=== PATIENT | male | born 1965 | race Caucasian/White ===

== ENCOUNTER → 2017-09-29 15:05 | Outpatient (CLI) | payer OTHER, SELFPAY ==
--- NOTE | 2017-09-29 15:11 | CT_ITS ---
CT sinus wo con CLINICAL INDICATION: Posterior column but] A palpable [ ITS.REASON: MAXILLARY SINUSITIS, RHINITIS ORDERING PHYSICIAN: Memo Romero MD PATIENT AGE: 51 years COMPARISON: None TECHNIQUE:Axial, sagittal, and coronal images are generated and reviewed without contrast COMPARISON: None FINDINGS: No sinus air-fluid level is evident. There is minimal mucosal thickening within the ethmoid sinuses. There is a 14 x 8 mm retention cyst in the floor the right maxillary sinus. There is moderate rightward nasal septal deviation with a small septal spur projecting toward the right. Ostiomeatal units are patent. The left maxillary, sphenoid, and frontal sinuses are unremarkable. Unremarkable appearing orbits. The TMJs have an unremarkable appearance as do the mastoid sinuses. The right acoustic foramen is slightly larger than the left side. This is of questionable clinical evident. Scattered small lymph nodes are present in the neck. There is a 2.8 x 2.1 cm subcutaneous collection in the left upper back and could be due to sebaceous cyst. IMPRESSION: 1. Minimal mucosal thickening of ethmoid sinuses with a 14 mm retention cyst in the right maxillary sinus. 2. No sinus air-fluid levels. 3. Moderate rightward nasal septal deviation. 4. Some asymmetry in the acoustic foramen, the right being slightly larger than the left. This is of questionable clinical significance and may be better evaluated with MRI without and with contrast if clinically warranted
== END ==
PROVIDERS: Family Provider Internal Medicine; PCP Internal Medicine; Visit Provider Otolaryngology
DX: J32.0 Chronic maxillary sinusitis (principal); J31.0 Chronic rhinitis
CPT/HCPCS: 70486

== ENCOUNTER → 2017-10-08 10:43 | Outpatient (CLI) | payer OTHER, SELFPAY ==
[2017-10-08 11:39] LABS: Hemoglobin 13.1 g/dL (14.1-18.0); Red Blood Count 4.16 M/mm3 (4.60-6.20)
[2017-10-08 11:40] LABS: Basophils % 0.8 % (0.1-2.0); Eosinophils # 0.1 K/mm3 (0.0-0.4); Eosinophils % 2.1 % (0.1-12.0); Hematocrit 39.7 % (42.0-52.0); Lymphocytes # 1.7 K/mm3 (0.7-4.5); Lymphocytes % 37.2 K/mm3 (10-50); Mean Corpuscular HGB Conc 33.1 g/dL (31.8-35.4); Mean Corpuscular Hemoglobin 31.6 pg (27.0-31.2); Mean Corpuscular Volume 95.3 fl (80-94); Mean Platelet Volume 8.7 fl (7.4-10.4); Monocytes # 0.3 K/mm3 (0.1-1.0); Monocytes % 5.3 % (1.7-9.3); Neutrophils # 2.7 K/mm3 (1.8-7.8); Neutrophils % 54.5 % (37.0-80.0); Platelet Count 155 K/mm3 (142-424); Red Cell Distribution Width 12.3 % (11.5-17.5)
[2017-10-08 12:30] LABS: Anion Gap 15.3 mEq/L (5-15); Blood Urea Nitrogen 16 mg/dL (7-18); Carbon Dioxide 25 mmol/L (21.0-32.0); Chloride 103 mmol/L (98-107); Creatinine,Serum 0.89 mg/dL (0.70-1.30); Estimated Glomerular Filt Rate 90 ml/min (>60); GFR (African American) 109 ML/MIN (>60); Glucose 158 mg/dL (74-106); Potassium 4.3 mmoL/L (3.5-5.1); Sodium 139 mmol/L (136-145)
== END ==
PROVIDERS: PCP Internal Medicine; Visit Provider Otolaryngology
DX: J32.0 Chronic maxillary sinusitis (principal); J31.0 Chronic rhinitis; Z01.818 Encounter for other preprocedural examination
CPT/HCPCS: 36415; 80048; 85025; 93005

== ENCOUNTER 2017-10-28 07:42 | Day surgery (SDC) | payer OTHER, SELFPAY ==
[2017-10-27 12:18] VITALS: BMI 33.6
[2017-10-28] VITALS (10 sets, daily range): BP systolic 121–152; BP diastolic 73–98; PULSE 68–86; RESP 12–20; TEMP 36.2–36.9; O2SAT 90–97
--- NOTE | 2017-10-28 11:19 | P.PN_ITS ---
[facility] Anesthesia Record Part I Intake, IV Amount: 1,200 Estimated blood loss (mL): 50 Urine output (mL): 0 Blood Pressure: 141/81 SaO2: 95 Pulse Rate: 80 Respiratory Rate: 12 Temperature: 97.3 F Patient is:: Awake, Stable Stable to PACU at:: 11:15
--- NOTE | 2017-10-28 11:20 | P.PN_ITS ---
[facility] Anesthesia Record Part II Discharge Time: 11:45 Destination: [facility] PACU nurse assessment reviewed?: Yes Patient Condition:: Good Anesthesia Complications:: None
--- NOTE | 2017-10-28 11:24 | P.PN_ITS ---
[facility] Anesthesia Checklist - Structural Data Admitted From: Home Planned Operative Procedure/s: laryngoscopy w fess Consent for Planned Operative Procedure(s) Verified: Yes Verified Documents: Surgical Consent - NPO Status Verified Time NPO: 23:00 - Airway Assessment C-Spine Mobility Assessed: Yes TMJ Mobility Assessed: Yes Dentition: Poor Dentition - Neurological Assessment Level of Consciousness: Awake, Alert - Anesthesia Plan Anesthesia Risk discussed: Yes Anesthesia Plan: Verified ASA Class: II Anesthesia Type: General [facility] Anesthesia HX I have reviewed the patient's past medical history: Yes Medical History: Reports:: Diabetes Mellitus Type 2 (MEDS ONLY), Hyperlipidemia , Hypertension Denies:: Cancer, Diabetes Mellitus Type 1, MRSA, Seizures Other Medical History: Denies: Blood Transfusion Reaction Other Surgeries: Yes: Hernia Repair, Other Amputation: No Fractures: No *Family Hx:: Diabetes
[2017-10-28 15:14] LABS: POC Glucose,Bedside 180 mg/dL (70-110)
--- NOTE | 2017-11-01 15:03 | HMH.OPNOTE ---
Date of procedure: 10/28/17 Pre-op Diagnosis:: 1. Deviated nasal septum with 90% nasal airflow blockage 2. Polypoid right inferior turbinate Post-op Diagnosis:: same Procedure performed:: 1. Nasal septoplasty 2. Revomal of multiple right inferior turbinate polyps Surgeon:: Memo Romero MD PROFESSOR OF MUSICOLOGY:: Johnny Gomez Anesthesia: GETA Estimated blood loss (mL): 5 Operative findings:: same Operative note:: The patient under general anesthetic the face was prepped and draped the nose was decongested with topical cocaine and 5 cc of 2% lidocaine with epi were injected into the nasal septum.. A left hemitransfixion incision was made, and the mucoperichondrium and mucoperiosteum was elevated from both sides of the nasal septum. The Quadrangular cartilage was trimmed posteriorly and a large vomerine spur was removed. There was also small deformity of the anterior portion of the quadrangular cartilage and it was removed. The Perpendicular plate of the ethmoid was straightened and when that was done the septum could be realigned in the midline, it was held there with transfixion and hemitransfixion chromic sutures. Surgicel snow was placed between the flaps. There were multiple polyps involving the posterior end of the right inferior turbinate, using the Wildes forceps all of those polyps were removed and submitted. Bleeding was stopped with suction cautery. Cortisporin ointment was placed in the nasal vestibules. A Drip Pad dressing was applied and the patient was sent to recovery in good general condition. Condition: stable Disposition: PACU Complications:: none
--- NOTE | 2017-11-01 15:09 | P.OP_ITS ---
Date of procedure: 10/28/17 Pre-op Diagnosis:: 1. Deviated nasal septum with 90% nasal airflow blockage 2. Polypoid right inferior turbinate Post-op Diagnosis:: same Procedure performed:: 1. Nasal septoplasty 2. Revomal of multiple right inferior turbinate polyps Surgeon:: Memo Romero MD [employer]:: Johnny Gomez Anesthesia: GETA Estimated blood loss (mL): 5 Operative findings:: same Operative note:: The patient under general anesthetic the face was prepped and draped the nose was decongested with topical cocaine and 5 cc of 2% lidocaine with epi were injected into the nasal septum.. A left hemitransfixion incision was made, and the mucoperichondrium and mucoperiosteum was elevated from both sides of the nasal septum. The Quadrangular cartilage was trimmed posteriorly and a large vomerine spur was removed. There was also small deformity of the anterior portion of the quadrangular cartilage and it was removed. The Perpendicular plate of the ethmoid was straightened and when that was done the septum could be realigned in the midline, it was held there with transfixion and hemitransfixion chromic sutures. Surgicel snow was placed between the flaps. There were multiple polyps involving the posterior end of the right inferior turbinate, using the Wildes forceps all of those polyps were removed and submitted. Bleeding was stopped with suction cautery. Cortisporin ointment was placed in the nasal vestibules. A Drip Pad dressing was applied and the patient was sent to recovery in good general condition. Condition: stable Disposition: PACU Complications:: none
== END 2017-10-28 12:24 | disposition home or self-care (01) ==
LOC: OR 07:43
PROVIDERS: Family Provider Internal Medicine; PCP Internal Medicine; Visit Provider Otolaryngology
PROC: (CPT 30520; principal; 2017-10-28 09:30)
PROC: 0CJS8ZZ Inspection of Larynx, Via Natural or Artificial Opening Endoscopic (ICD-10-PCS; CPT 30115; 2017-10-28 09:30)
DX: J34.2 Deviated nasal septum (principal); J33.8 Other polyp of sinus
CPT/HCPCS: 30115; 30520; 82962; 96374; 96375; J2405; J2710

== ENCOUNTER → 2019-10-27 16:55 | Outpatient (CLI) | payer OTHER, SELFPAY ==
[2019-10-27 18:17] LABS: Alanine Aminotransferase 121 U/L (12-78); Albumin/Globulin Ratio 1.4 (1.1-1.8); Alkaline Phosphatase 78 U/L (38-126); Aspartate Amino Transferase 85 U/L (17-59); Bilirubin,Total 0.6 mg/dl (0.2-1.3); Blood Urea Nitrogen 16 mg/dl (9-20); Calcium 10.1 mg/dl (8.4-10.2); Carbon Dioxide 22 mmol/L (22.0-30.0); Chloride 101 mmol/L (98-107); Chol/HDL Ratio 3.6 (1-3.5); Cholesterol 186 mg/dl (140-200); Estimated Glomerular Filt Rate 101 ml/min (>60); GFR (African American) 122 ML/MIN (>60); Globulin 3.7 g/dL (1.3-3.2); Glucose 143 mg/dl (74-100); HDL Cholesterol 52 mg/dl (40-60); Sodium 137 mmol/L (136-145); Total Protein,Serum 8.7 g/dl (6.3-8.2); Triglycerides 382 mg/dl (30-150); VLDL Cholesterol 76 mg/dL (0-40)
[2019-10-27 18:28] LABS: Direct LDL Cholesterol 93.01 mg/dL (100-129)
[2019-10-27 19:05] LABS: Hemoglobin A1C 9.5 % (4.0-6.0)
== END ==
PROVIDERS: Visit Provider Internal Medicine
DX: E78.5 Hyperlipidemia, unspecified (principal); E11.9 Type 2 diabetes mellitus without complications; I10 Essential (primary) hypertension; Z79.84 Long term (current) use of oral hypoglycemic drugs
CPT/HCPCS: 80053; 80061; 83036

== ENCOUNTER → 2021-02-10 17:19 | Outpatient (CLI) | payer OTHER, SELFPAY ==
[2021-02-10 17:45] LABS: Hemoglobin A1C 7.7 % (4.0-6.0)
[2021-02-10 18:03] LABS: Chloride 102 mmol/L (98-107); Potassium 4.8 mmoL/L (3.5-5.1); Sodium 137 mmol/L (136-145)
[2021-02-10 18:05] LABS: Blood Urea Nitrogen 19 mg/dl (9-20); Estimated Glomerular Filt Rate 78 ml/min (>60); GFR (African American) 94 ML/MIN (>60)
[2021-02-10 18:06] LABS: Alanine Aminotransferase 81 U/L (12-78); Albumin Level 5.2 g/dl (3.5-5.0); Albumin/Globulin Ratio 1.3 (1.1-1.8); Alkaline Phosphatase 77 U/L (38-126); Anion Gap 16.8 mEq/L (5-15); Aspartate Amino Transferase 55 U/L (17-59); Bilirubin,Total 0.8 mg/dl (0.2-1.3); Calcium 9.8 mg/dl (8.4-10.2); Carbon Dioxide 23 mmol/L (22.0-30.0); Cholesterol 212 mg/dl (140-200); Globulin 3.9 g/dL (1.3-3.2); Glucose 112 mg/dl (74-100); HDL Cholesterol 53 mg/dl (40-60); Total Protein,Serum 9.1 g/dl (6.3-8.2)
[2021-02-10 18:08] LABS: Triglycerides 511 mg/dl (30-150)
[2021-02-10 18:17] LABS: Direct LDL Cholesterol 79.33 mg/dL (100-129)
== END ==
LOC: LAB.DROPOF 17:19
PROVIDERS: Visit Provider Internal Medicine
DX: E11.9 Type 2 diabetes mellitus without complications (principal); I10 Essential (primary) hypertension; E78.5 Hyperlipidemia, unspecified; Z79.84 Long term (current) use of oral hypoglycemic drugs
CPT/HCPCS: 80053; 80061; 83036

== ENCOUNTER 2021-06-03 14:49 | Emergency (ER) | payer OTHER, SELFPAY ==
[2021-06-03 15:06] VITALS: BP 123/73; PULSE 98; RESP 16; TEMP 37.8; O2SAT 99; BMI 32.3
--- NOTE | 2021-06-03 15:27 | HMH.EDUTC ---
[facility] [place] Clinical Impression: Viral syndrome, Exposure to COVID-19 virus, Bronchitis Disposition: Home, Self-Care Condition on Discharge: Good Instructions: Acute Bronchitis, DI for Acute Bronchitis, DI for COVID-19 (Suspected or Confirmed ), Preventing the Spread of Coronavirus Discharge Instructions Additional Instructions: Drink plenty of fluids. Take tylenol or ibuprofen for pain or fever. Take the medications as directed. Follow up with your regular doctor. GO TO THE ER FOR ANY WORSENING SYMPTOMS Quarantine until you know the results of your covid-19 test. If it is positive, the health department should call you and give you further instructions about your length of Quarantine and other things. Notify your school or workplace of your results and follow their instructions regarding return to work/school. Prescriptions: Benzonatate [Tessalon Perle 100mg Cap] 100 mg PO TIDP PRN #30 cap PRN Reason: Cough Transmission Status: Received by [facility] Azithromycin [Z-Ta 250mg Tab*] 250 mg PO UD DOSE PK #6 tab Transmission Status: [facility] Referrals: Júnior Robert [Primary Care Provider] - Forms: Work/School Release Time of Disposition: 15:45 Medical Decision Making - Medical Records Medical records reviewed: No: I reviewed the patient's medical records. - Leonard Inquiry Pt receiving controlled substance: No Vital Signs: 06/03/21 15:06 06/03/21 16:18 Temperature 100.0 F H 100.0 F H Temperature Source Oral Oral Pulse Rate 98 H Pulse Rate [Apical] 98 H Respiratory Rate 16 16 Blood Pressure 123/73 Blood Pressure [Right Arm] 123/73 Blood Pressure Mean [Right Arm] 89 Blood Pressure Source Automatic Cuff Blood Pressure Source [Right Arm] Automatic Cuff Blood Pressure Position Sitting Blood Pressure Position [Right Arm] Sitting 02 Sat by Pulse Oximetry 99 Oxygen Delivery Method Room Air Room Air [facility] [place] HPI - General Stated complaint: covid symptoms, chest congestion Time Seen by Provider: 06/03/21 15:27 Mode of Arrival: Ambulatory Source of Information: Patient Limitations: No Limitations Description of Symptoms (Recalled from Triage Doc. by RN): chest congestion, fever, sore throat HEENT Symptoms (Recalled from RN notes): No Resp Symptoms (Recalled from RN notes): Yes Skin Symptoms (Recalled from RN notes): No MS Symptoms (Recalled from RN notes): No Functional Status (Recalled from RN notes): na - History of Present Illness Provider Complaint: He states that he has been having a cough and feeling congested in his chest for the past 2 days. He denies any fever but he has a low grade fever at check in today. He has not been vaccinated against covid-19. - Related Data Home Medications Medication Instructions Recorded Confirmed metformin 500 mg tablet 500 mg PO BID 09/24/17 09/25/18 Lovastatin 40 mg PO DAILY 09/25/18 09/25/18 lisinopriL [Lisinopril 2.5mg Tab] 2.5 mg PO DAILY 09/25/18 09/25/18 Previous Rx's Medication Instructions Recorded clindamycin HCL [Clindamycin HCl 300 mg PO Q6 #28 cap 09/25/18 300mg Cap] Etodolac [Etodolac 200mg Cap*] 200 mg PO Q6H PRN #20 cap 06/21/19 methocarbamoL [Methocarbamol 750mg 750 mg PO BID #10 tab 06/21/19 Tab] Azithromycin [Z-Ta 250mg Tab*] 250 mg PO UD DOSE PK #6 tab 06/03/21 Benzonatate [Tessalon Perle 100mg 100 mg PO TIDP PRN #30 cap 06/03/21 Cap] Allergies Allergy/AdvReac Type Severity Reaction Status Date / Time No Known Allergies Allergy Verified 11/11/17 15:47 - Worker's Comp Is this a Worker's Comp case?: No [facility] History - Hepatitis A Screen Drug use history?: No High risk sexual behaviors?: No History of sexually transmitted infection?: No Currently employed?: No Childcare worker?: No Do you have indoor plumbing?: Yes Do you have electricity?: Yes Attestation statement:: This patient has been screened for Hepatitis A risk factors. I have
[2021-06-03 16:18] VITALS: BP 123/73; PULSE 98; RESP 16; TEMP 37.8; O2SAT 96
== END 2021-06-03 16:19 | disposition home or self-care (01) ==
PROVIDERS: Emergency Provider Nurse Practitioner Family; PCP Internal Medicine
DX: B34.9 Viral infection, unspecified (principal); J40 Bronchitis, not specified as acute or chronic; Z20.822 Contact with and (suspected) exposure to COVID-19
CPT/HCPCS: 99202; C9803; G0463; U0003; U0005

== ENCOUNTER 2021-06-07 07:54 | Outpatient (CLI) | payer OTHER, SELFPAY ==
[2021-06-07] VITALS (9 sets, daily range): BP systolic 127–144; BP diastolic 79–86; PULSE 60–80; RESP 17–18; TEMP 36.8–37.1; O2SAT 94–97
== END 2021-06-07 10:35 | disposition home or self-care (01) ==
LOC: INF 07:56
PROVIDERS: PCP Internal Medicine; Visit Provider Internal Medicine
DX: U07.1 COVID-19 (principal)
CPT/HCPCS: 96365

== ENCOUNTER → 2022-03-24 18:34 | Outpatient (CLI) | payer OTHER, SELFPAY ==
[2022-03-24 21:12] LABS: Alanine Aminotransferase 71 U/L (12-78); Albumin Level 4.8 g/dl (3.5-5.0); Albumin/Globulin Ratio 1.3 (1.1-1.8); Alkaline Phosphatase 102 U/L (38-126); Anion Gap 21.2 mEq/L (5-15); Aspartate Amino Transferase 63 U/L (17-59); Bilirubin,Total 0.6 mg/dl (0.2-1.3); Blood Urea Nitrogen 20 mg/dl (9-20); Calcium 9.7 mg/dl (8.4-10.2); Carbon Dioxide 20 mmol/L (22.0-30.0); Chloride 101 mmol/L (98-107); Chol/HDL Ratio 5.1 (1-3.5); Cholesterol 195 mg/dl (140-200); Estimated Glomerular Filt Rate 87 ml/min (>60); GFR (African American) 106 ML/MIN (>60); Globulin 3.8 g/dL (1.3-3.2); Glucose 121 mg/dl (74-100); HDL Cholesterol 38 mg/dl (40-60); Potassium 4.2 mmoL/L (3.5-5.1); Sodium 138 mmol/L (136-145); Total Protein,Serum 8.6 g/dl (6.3-8.2)
[2022-03-24 21:25] LABS: Creatinine,Urine Random 121 mg/dL (Not Estab.); Direct LDL Cholesterol 70.67 mg/dL (100-129)
[2022-03-24 21:26] LABS: Triglycerides 566 mg/dl (30-150)
[2022-03-24 21:45] LABS: Prostate Specific Ag Screen 1.3 ng/ml (0.0-4.0)
== END ==
LOC: LAB.DROPOF 18:35
PROVIDERS: PCP Internal Medicine; Visit Provider Internal Medicine
DX: E11.9 Type 2 diabetes mellitus without complications (principal); E78.5 Hyperlipidemia, unspecified; Z12.5 Encounter for screening for malignant neoplasm of prostate; Z79.84 Long term (current) use of oral hypoglycemic drugs; I10 Essential (primary) hypertension
CPT/HCPCS: 80053; 80061; 82043; 82570; G0103

== ENCOUNTER → 2022-09-25 16:45 | Outpatient (CLI) | payer OTHER, SELFPAY ==
[2022-09-25 17:59] LABS: Hemoglobin A1C 6.2 % (4.0-6.0)
[2022-09-25 18:04] LABS: Alanine Aminotransferase 79 U/L (12-78); Albumin Level 4.8 g/dl (3.5-5.0); Albumin/Globulin Ratio 1.3 (1.1-1.8); Alkaline Phosphatase 77 U/L (38-126); Anion Gap 13.8 mEq/L (5-15); Aspartate Amino Transferase 56 U/L (17-59); Bilirubin,Total 0.7 mg/dl (0.2-1.3); Blood Urea Nitrogen 17 mg/dl (9-20); Carbon Dioxide 25 mmol/L (22.0-30.0); Chloride 103 mmol/L (98-107); Chol/HDL Ratio 3.8 (1-3.5); Cholesterol 162 mg/dl (140-200); Estimated Glomerular Filt Rate 77 ml/min (>60); GFR (African American) 94 ML/MIN (>60); Globulin 3.6 g/dL (1.3-3.2); Glucose 67 mg/dl (74-100); HDL Cholesterol 43 mg/dl (40-60); Potassium 3.8 mmoL/L (3.5-5.1); Sodium 138 mmol/L (136-145); Total Protein,Serum 8.4 g/dl (6.3-8.2); Triglycerides 365 mg/dl (30-150); VLDL Cholesterol 73 mg/dL (0-40)
[2022-09-25 18:17] LABS: Direct LDL Cholesterol 75.48 mg/dL (100-129)
== END ==
LOC: LAB.DROPOF 16:46
PROVIDERS: PCP Internal Medicine; Visit Provider Internal Medicine
DX: I10 Essential (primary) hypertension (principal); E78.5 Hyperlipidemia, unspecified; K76.0 Fatty (change of) liver, not elsewhere classified; E11.9 Type 2 diabetes mellitus without complications; Z79.84 Long term (current) use of oral hypoglycemic drugs
CPT/HCPCS: 80053; 80061; 83036

== ENCOUNTER → 2022-11-23 16:48 | Outpatient (CLI) | payer OTHER, SELFPAY | LOC: LAB.DROPOF 16:49 | PROVIDERS: PCP Internal Medicine; Visit Provider Internal Medicine | DX: N39.0 Urinary tract infection, site not specified (principal); B96.29 Other Escherichia coli [E. coli] as the cause of diseases classified elsewhere | CPT/HCPCS: 87086; 87088; 87186 ==

== ENCOUNTER 2023-03-17 19:41 | Emergency (ER) | payer OTHER, SELFPAY ==
[2023-03-17 19:41] VITALS: BP 140/73; PULSE 89; RESP 18; TEMP 36.6; O2SAT 96; BMI 30.1
--- NOTE | 2023-03-17 19:43 | EXP.UTC ---
Discharge Plan Disposition Patient Disposition: Home, Self-Care Condition: Good Prescriptions Prescriptions: New triamcinolone acetonide 0.1 % cream 1 applic topical BID PRN (Reason: itching) Qty: 30 0RF methylprednisolone 4 mg Tablets,Dose Pack 4 mg PO DIRECTED Qty: 21 0RF No Action metformin 500 mg tablet 500 mg PO BID lovastatin 40 tablet 40 mg PO DAILY lisinopril 2.5 tablet 2.5 mg PO DAILY clindamycin HCl 300 MG capsule 300 mg PO Q6 Qty: 28 0RF etodolac 200 MG capsule 200 mg PO Q6H PRN (Reason: Moderate Pain) Qty: 20 0RF methocarbamol 750 MG tablet 750 mg PO BID Qty: 10 0RF azithromycin 250 MG tablet 250 mg PO UD DOSE PK Qty: 6 0RF Rx Instructions: Take two (2) tablets today, then one (1) tablet days #2 thru #5 benzonatate 100 MG capsule 100 mg PO TIDP PRN (Reason: Cough) Qty: 30 0RF Referrals Follow up/Referrals: Júnior Robert MD [Primary Care Provider] - See instructions Activity Restrictions/Add. Instructions Additional Instructions/Restrictions: Don't start the oral steroids until tomorrow. Contue to take diphenhydramine (benedryl) every 6 hours for the next couple of days. The topical steroid (trimacinolone) will help if you have itching of the stings sites. Follow up with your regular doctor. GO TO THE ER FOR ANY WORSENING SYMPTOMS OR CONCERNS Clinical Impressions Clinical Impression: Accidental bee sting Instructions Patient Instructions: DI for Insect Bites and Stings, Methylprednisolone Injection Discharge ED Provider: Jerson Abreu [facility] [place] General Stated complaint: bee stings Time Seen by Provider: 03/17/23 19:51 History of Present Illness Provider Complaint: Earlier today, he was stung 6 times by some bees. He is unsure what type of bee it was. He denies any shortness of breath, chest pain, and swelling of his mouth and throat. He denies any history of allergy to bee stings. Related Data Home Medications Medication Instructions Recorded Confirmed metformin 500 mg tablet 500 mg PO BID Diabetes 09/24/17 09/25/18 lisinopril 2.5 mg tablet 2.5 mg PO DAILY HTN 09/25/18 09/25/18 lovastatin 40 mg tablet 40 mg PO DAILY Cholesterol 09/25/18 09/25/18 Previous Rx's Medication Instructions Recorded clindamycin HCl 300 mg capsule 300 mg PO Q6 #28 caps 09/25/18 etodolac 200 mg capsule 200 mg PO Q6H PRN Moderate Pain 06/21/19 #20 caps methocarbamol 750 mg tablet 750 mg PO BID #10 tabs 06/21/19 azithromycin 250 mg tablet 250 mg PO UD DOSE PK #6 tabs 06/03/21 benzonatate 100 mg capsule 100 mg PO TIDP PRN Cough #30 caps 06/03/21 methylprednisolone 4 mg tablets in 4 mg PO DIRECTED #21 tabs 03/17/23 a dose pack triamcinolone acetonide 0.1 % 1 applic topical BID PRN itching 03/17/23 topical cream #30 grams Allergies Allergy/AdvReac Type Severity Reaction Status Date / Time No Known Allergies Allergy Verified 11/11/17 15:47 [facility] Disclaimer: The information contained in this section may have been updated after the patient was seen, as this information can be updated by other users. Social History Smoking Status: Former smoker second hand exposure: Yes alcohol intake: never substance use type: denies use current occupational status: employed Travel in the last 8 weeks: None household members: spouse housing: house current occupation: [employer] current occupational exposures/hazards: No ROS Obtained: Yes All systems reviewed & no additional complaints except as documented Constitutional Constitutional: Denies chills and Denies fever(s) Eyes Eyes: Denies eye discharge ENT Ears, Nose, Mouth, and Throat: Denies dizziness, Denies otalgia and Denies sore throat Cardiovascular Cardiovascular: Denies chest pain Respiratory Respiratory: Denies shortness of breath, Denies chest congestion, Denies cough, Denies stridor a
[2023-03-17 20:06] VITALS: BP 140/73; PULSE 89; RESP 18; TEMP 36.6; O2SAT 96
== END 2023-03-17 20:13 | disposition home or self-care (01) ==
PROVIDERS: Emergency Provider Nurse Practitioner Family; PCP Internal Medicine
DX: T63.441A Toxic effect of venom of bees, accidental (unintentional), initial encounter (principal); Z87.891 Personal history of nicotine dependence
CPT/HCPCS: 96372; 99212; 99214; G0463

== ENCOUNTER 2024-04-27 13:56 | Outpatient (CLI) | payer OTHER, SELFPAY ==
--- NOTE | 2024-04-27 14:03 | XR_ITS ---
FINAL REPORT CLINICAL HISTORY: thoracic neurology R posterior pain COMPARISON: None FINDINGS: CHEST: 2 views of the chest reveal a normal cardiac silhouette. No infiltrates or effusions are identified. Mild thoracic degenerative change with osteophyte formation is present. No pleural effusion is noted. IMPRESSION: No acute abnormality. Reviewed, Interpreted and Dictated by Enrique Moreno MD Transcribed by Pilar Tong Authenticated and . [facility]
== END 2024-04-27 23:59 | disposition home or self-care (01) ==
PROVIDERS: PCP Internal Medicine; Visit Provider Internal Medicine
DX: M79.2 Neuralgia and neuritis, unspecified (principal)
CPT/HCPCS: 71046

== ENCOUNTER 2024-05-23 14:03 | Outpatient (CLI) | payer OTHER, SELFPAY ==
--- NOTE | 2024-05-23 14:04 | MR_ITS ---
FINAL REPORT TECHNIQUE: Multiplanar MR without contrast CLINICAL HISTORY: Radicular syndrome right arm. RIGHT SIDED SHOULDER PAIN TO ELBOW FINDINGS: Limited images of the posterior fossa are unremarkable. Alignment is normal. Cervical spinal cord shows normal signal and contour. C2-3: Unremarkable C3-4: Mild annular disc bulge and facet arthropathy. Moderate bilateral neural foraminal narrowing. No central canal stenosis. C4-5: Moderate annular disc bulge, asymmetric to the left. Borderline central canal stenosis and moderate bilateral neural foraminal narrowing. C5-6: Right foraminal disc osteophyte complex resulting in severe right neural foraminal narrowing and mild right lateral recess stenosis. C6-7: Mild annular disc bulge covered by osteophyte. Mild bilateral neural foraminal narrowing. 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 Reviewed, Interpreted and Dictated by Meliton Martins MD Transcribed by Rosetta Reyes Authenticated and [facility]
== END 2024-05-23 23:59 | disposition home or self-care (01) ==
LOC: RAD 14:04
PROVIDERS: PCP Internal Medicine; Visit Provider Internal Medicine
DX: M47.22 Other spondylosis with radiculopathy, cervical region (principal); M89.8X1 Other specified disorders of bone, shoulder
CPT/HCPCS: 72141